=== PATIENT | male | born 1955 | race Caucasian/White ===

== ENCOUNTER 2020-04-19 14:17 | Emergency (ER) | payer MEDICARE, OTHER, SELFPAY ==
[2020-04-19 14:28] VITALS: BP 155/75; PULSE 62; RESP 20; TEMP 35.9; O2SAT 100
--- NOTE | 2020-04-19 14:42 | ED.URI ---
HPI - URI/Sore Throat General Chief Complaint: Upper Respiratory Infection Stated Complaint: EARACHE/SORE THROAT Time Seen by Provider: 04/19/20 14:43 Source: patient and RN notes reviewed Mode of arrival: ambulatory Limitations: no limitations History of Present Illness HPI Narrative: 64-year-old male who presents ambulatory to [facility] with complaints of 2 day history of left sided throat pain when he swallows, sinus drainage, and left ear pain. Patient states that he has not taken any OTC medications for his symptoms, denies any known fevers, chills, or sweats, denies any headache or any sinus pressure. Patient denies any shortness of breath, no wheezing or tachypnea noted with SAO2 100% on room air. MD elicited complaint: sore throat, rhinorrhea and other (Ear pain) Onset (ago): day(s) (2) Consistency: constant Severity: mild Pain scale (0-10): 3 Description of mucous: clear Able to tolerate fluids by mouth: Yes Exacerbating factors: swallowing Relieving factors: nothing Associated symptoms: rhinorrhea, sore throat and ear pain (left) Treatments prior to arrival: none Related Data Home Medications Medication Instructions Recorded Confirmed amlodipine 10 mg tablet 10 mg PO DAILY 02/11/19 Allergies Allergy/AdvReac Type Severity Reaction Status Date / Time No Known Allergies Allergy Unverified 08/09/18 13:52 Review of Systems Review of Systems: Narrative: CONSTITUTIONAL: Denies fever, chills, or sweats. EYES: Denies visual changes, redness, or discharge. ENT: Positive rhinorrhea, congestion, sore throat,left otalgia. CARDIOVASCULAR: Denies chest pain, palpitations, or edema. RESPIRATORY: Denies cough or dyspnea. GASTROINTESTINAL: Denies abdominal pain, nausea, vomiting, or diarrhea. GENITOURINARY: Denies dysuria or hematuria. SKIN: Denies rash or itching. MUSCULOSKELETAL: Denies back pain, joint pain, or myalgia. NEUROLOGIC: Denies headache, numbness, or weakness. PSYCHIATRIC: positive history of anxiety or depression. All systems reviewed & are unremarkable except as noted in HPI and below PMFSH Past Medical History Medical History (Updated 04/21/20 @ 08:13 by Oliva Hutton NP) Angina pectoris, unspecified Anxiety Hypertension Surgical History Surgical History (Updated 04/21/20 @ 08:12 by Oliva Hutton NP) Hx of cholecystectomy Hx of tonsillectomy Family History Family History (Updated 04/21/20 @ 08:14 by Oliva Hutton NP) Father Patient's father is , Onset Age: 72 Abdominal aneurysm Grandparent Family history of malignant neoplasm Mother Family history of renal failure, Onset Age: 82 Family history of kidney disease Sibling Diabetes mellitus Social History Social History (Updated 04/19/20 @ 15:02 by Oliva Hutton NP) Smoking status: Never smoker Alcohol intake: current Substance use: never Living arrangements: with family Gender identity (if verbalized by the patient): Male Comments At time of signature, agree with nursing past medical, surgical, social and family history. There is no relevant family history pertinent to the presenting complaint Exam Narrative: Exam Narrative: GENERAL: Well-appearing, well-nourished, and in no acute distress. HEAD: Normocephalic, atraumatic. EYES: PERRLA and EOMI. ENT: Nares red with clear rhinorrhea no epistaxis. Mucous membranes moist.TM's normal with good light reflex, throat red with no exudates no tonsil enlargement post nasal drainage noted NECK: Supple.lymphadenopathy CHEST: Clear to auscultation. No respiratory distress.SAO2 100% on room air HEART: Regular rate and rhythm. No murmur heard. Normal peripheral pulses. ABDOMEN: Soft, nontender, nondistended, normal active bowel sounds. EXTREMITIES: Normal range of motion. No edema. SKIN: Warm, dry, no rash. NEURO: No focal deficits. Alert and oriented x3. Course Vital Signs Vital signs: Vital Signs Temperature 35.9 C L 04/19/20
== END 2020-04-19 15:16 | disposition home or self-care (01) ==
PROVIDERS: Emergency Provider Registered Nurse; PCP Family Medicine
DX: J06.9 Acute upper respiratory infection, unspecified (principal); J02.9 Acute pharyngitis, unspecified; I10 Essential (primary) hypertension; I20.9 Angina pectoris, unspecified
CPT/HCPCS: 87081; 87880; 99213; G0463

== ENCOUNTER → 2020-07-28 16:33 | Outpatient (CLI) | payer MEDICARE, OTHER, SELFPAY ==
--- NOTE | ~2020-07-28 | XR_ITS ---
EXAMINATION: XR foot RT min 3V DATE: 07/28/2020 16:45 INDICATION: Bunion of the right foot TECHNIQUE: Dorsoplantar, lateral, and 2 oblique views of the right foot were obtained. COMPARISON: None. FINDINGS: There is moderate osteoarthritis at the first metatarsophalangeal joint. Mild osteoarthriti s is seen in multiple interphalangeal joints. No fracture is identified. A plantar calcaneal enthesop hyte is noted. There is a triangular heterotopic ossification at the lateral base of the second proxi mal phalanx which may reflect prior injury. IMPRESSION: 1. Polyarticular osteoarthritis. Reviewed, dictated and finalized at location A.
== END ==
PROVIDERS: PCP Physician Assistant Medical; Visit Provider Physician Assistant Medical
DX: M21.611 Bunion of right foot (principal); M19.071 Primary osteoarthritis, right ankle and foot
CPT/HCPCS: 73630

== ENCOUNTER 2021-01-25 00:15 | Day surgery (SDC) | payer MEDICARE, OTHER, SELFPAY ==
[2021-01-10 13:10] VITALS: BMI 27.0
[2021-01-25 06:32] VITALS: BP 124/83; PULSE 64; RESP 16; TEMP 36.1; O2SAT 98
[2021-01-25] MEDS: LACTATED RINGERS 1,000 ML 150 ML IV CONT (06:43)
--- NOTE | 2021-01-25 07:14 | P.PNAN_ITS ---
Anes - Initial Pre Proc Eval Procedure: Operation Date: 01/25/21 07:30 Proposed Procedures p Screening Colonoscopy - Kenny Smith MD Date/Time: 01/25/21 07:14 Surgeon: Kenny Smith MD Pre Op Diagnosis: neoplasm screening Patient Data Age: 65 Gender: M Height: 1.78 m Weight: 84.2 kg Last Vital Signs Temp 36.1 C L 01/25/21 06:32 Pulse 64 01/25/21 06:32 Resp 16 01/25/21 06:32 BP 124/83 01/25/21 06:32 Pulse Ox 98 01/25/21 06:32 Allergies Allergy/AdvReac Type Severity Reaction Status Date / Time No Known Allergies Allergy Verified 01/25/21 06:31 Home Medications Medication Instructions Recorded Confirmed Type amlodipine 10 mg tablet 10 mg PO DAILY 02/11/19 01/25/21 History sod picosulf 10 mg-magnes 3.5 160 ml PO DAILY #320 ml 12/14/20 Rx gram-citric 12 gram/160 mL oral solution Patient hx anesthesia problems: none Family hx anesthesia problems: none Results Review: All pre-operative results and documents have been reviewed as part of the pre-operative evaluation. [facility] Past Medical History Medical History Angina pectoris, unspecified Anxiety Hypertension Surgical History Surgical History Hx of cholecystectomy Hx of tonsillectomy Family History Family History Father Patient's father is , Onset Age: 72 Abdominal aneurysm Grandparent Family history of malignant neoplasm Mother Family history of renal failure, Onset Age: 82 Family history of kidney disease Sibling Diabetes mellitus Social History Social History Smoking status: Never smoker Alcohol intake: current Drinks per week: 2 Substance use: never Living arrangements: with family Gender identity (if verbalized by the patient): Male Spiritual care concerns: No Anes - Eval Final PreProcedure Day of Procedure 01/25/21 07:14 Patient weight: overweight Heart: regular rate and rhythm Lungs: clear to auscultation and normal air movement Airway: Mallampati scale class II Neurological: alert and oriented Last oral intake: >/= 8 hours ASA classification: II Emergent: no Anesthetic plan: proceed Anesthesia type and monitoring: general GIVS Results Review: All pre-operative results and documents have been reviewed as part of the pre-operative evaluation. Informed Consent: The patient's anesthetic plan and its attendant risks and be nefits were discussed with the patient/family/POA. Questions were solicited and answers provided to the satisfaction of the patient/family/POA.
--- NOTE | 2021-01-25 07:22 | WPDGICN ---
Assessment and Plan Assessment and plan (1) Encounter for screening colonoscopy: Code(s): Z12.11 - Encounter for screening for malignant neoplasm of colon Status: Acute Assessment and Plan: Patient presents for screening colonoscopy. He appears to be at average risk for colon polyps. Further recommendations will be given after endoscopy. GI Consult Note Consult date/time: 01/25/21 07:22 HPI: Tonny Roca is a 65 year old male Presents for screening colonoscopy. Patient reports that his current weight appetite and bowel movements are normal. He denies abdominal pain. He has had no bleeding. Family history is noncontributory. Patient's last colonoscopy in 2008 was unremarkable. Review of Systems Review of Systems: All systems reviewed & are unremarkable except as noted in HPI and below PMFSH Past Medical History Medical History Angina pectoris, unspecified Anxiety Hypertension Surgical History Surgical History Hx of cholecystectomy Hx of tonsillectomy Family History Family History Father Patient's father is , Onset Age: 72 Abdominal aneurysm Grandparent Family history of malignant neoplasm Mother Family history of renal failure, Onset Age: 82 Family history of kidney disease Sibling Diabetes mellitus Social History Social History Smoking status: Never smoker Alcohol intake: current Drinks per week: 2 Substance use: never Living arrangements: with family Gender identity (if verbalized by the patient): Male Spiritual care concerns: No Meds Home Medications and Allergies Home Medications Medication Instructions Recorded Confirmed Type amlodipine 10 mg tablet 10 mg PO DAILY 02/11/19 01/25/21 History sod picosulf 10 mg-magnes 3.5 160 ml PO DAILY #320 ml 12/14/20 Rx gram-citric 12 gram/160 mL oral solution Allergies Allergy/AdvReac Type Severity Reaction Status Date / Time No Known Allergies Allergy Verified 01/25/21 06:31 Vital Signs Vital Signs - 24 hr 01/25/21 06:32 Temperature 96.9 F L Pulse Rate 64 Respiratory Rate 16 Blood Pressure 124/83 Pulse Oximetry 98 Exam Narrative: Physical exam reveals patient to be alert. Vital signs stable. HEENT exam is unremarkable. Patient is anicteric. Lungs are clear to auscultation and percussion. Heart is without murmur or extra sounds. Abdominal exam bowel sounds present soft nontender with no organomegaly. Digital external rectal exam is normal.
[2021-01-25] MEDS: SIMETHICONE ORAL SUSPENSION 20 MG/0.3 ML 30 ML BOTTLE 0.6 ML IRRIGATION (07:36)
[2021-01-25 07:49] VITALS: BP 88/56; PULSE 80; RESP 16; O2SAT 96
[2021-01-25 07:59] VITALS: BP 102/66; PULSE 49; RESP 16; O2SAT 94
[2021-01-25 08:09] VITALS: BP 113/60; PULSE 49; RESP 16; O2SAT 97
== END 2021-01-25 08:20 | disposition home or self-care (01) ==
PROVIDERS: PCP Family Medicine; Visit Provider Internal Medicine Gastroenterology
PROC: 0DJD8ZZ Inspection of Lower Intestinal Tract, Via Natural or Artificial Opening Endoscopic (ICD-10-PCS; CPT 45378; principal; 2021-01-25 07:30)
DX: Z12.11 Encounter for screening for malignant neoplasm of colon (principal); K63.5 Polyp of colon; K64.8 Other hemorrhoids; K57.30 Diverticulosis of large intestine without perforation or abscess without bleeding; F41.9 Anxiety disorder, unspecified; I10 Essential (primary) hypertension; I20.9 Angina pectoris, unspecified; Z90.49 Acquired absence of other specified parts of digestive tract
CPT/HCPCS: 45385; 88305; J2704; J7120

== ENCOUNTER 2022-03-12 15:23 | Emergency (ER) | payer MEDICARE, SELFPAY ==
[2022-03-12 15:48] VITALS: BP 119/71; PULSE 79; RESP 16; TEMP 36.7; O2SAT 99
--- NOTE | 2022-03-12 16:01 | ED.URI ---
HPI - URI/Sore Throat General Chief Complaint: Upper Respiratory Infection Stated Complaint: sorethroat Time Seen by Provider: 03/12/22 16:01 Source: patient Mode of arrival: ambulatory Limitations: no limitations History of Present Illness HPI Narrative: 66-year-old male presents with complaint of sore throat, body aches, fatigue, headache starting yesterday. Patient reports that his son was staying with him last week and was positive for strep. Patient reports that his has a heart condition and he wants to treat his strep early before spreading it to her. Denies nausea vomiting diarrhea. All systems reviewed and negative except as noted above. Related Data Home Medications Medication Instructions Recorded Confirmed amlodipine 10 mg tablet 10 mg PO DAILY 02/11/19 03/12/22 melatonin 10 mg capsule 10 mg PO QHS 07/24/21 03/12/22 Allergies Allergy/AdvReac Type Severity Reaction Status Date / Time No Known Allergies Allergy Verified 03/12/22 15:32 Review of Systems Review of Systems: CONSTITUTIONAL: Denies fever, chills, or sweats. reports fatigue. EYES: Denies visual changes, redness, or discharge. ENT: Denies rhinorrhea, congestion . Reports sore throat. Denies otalgia. CARDIOVASCULAR: Denies chest pain, palpitations, or edema. RESPIRATORY: Denies cough or dyspnea. GASTROINTESTINAL: Denies abdominal pain, nausea, vomiting, or diarrhea. GENITOURINARY: Denies dysuria or hematuria. SKIN: Denies rash or itching. MUSCULOSKELETAL: Denies back pain, joint pain, or myalgia. NEUROLOGIC: Reports headache. Denies numbness, or weakness. PSYCHIATRIC: Denies anxiety or depression. All other systems reviewed are negative, except as documented in HPI. [facility] Past Medical History Medical History Angina pectoris, unspecified Anxiety Hypertension Surgical History Surgical History Hx of cholecystectomy Hx of tonsillectomy Family History Family History Father Patient's father is , Onset Age: 72 Abdominal aneurysm Grandparent Family history of malignant neoplasm Mother Family history of renal failure, Onset Age: 82 Family history of kidney disease Sibling Diabetes mellitus Social History Social History Alcohol intake: current Drinks per week: 2 Substance use: never Gender identity (if verbalized by the patient): Male Spiritual care concerns: No Comments At time of signature, agree with nursing past medical, surgical, social and family history. There is no relevant family history pertinent to the presenting complaint. Exam Narrative: GENERAL: This is a well-nourished, well-developed patient, in no apparent distress. HEAD: normocephalic, atraumatic. EYES: PERRL. Sclera clear/white. Vision is grossly intact. EARS: External ears normal, auditory canals clear and without drainage, TMs normal without perforation. Hearing grossly intact. NOSE: External nose normal with no obvious nasal discharge, nares without redness, no rhinorrhea. THROAT: Mucous membranes moist, erythema to posterior pharynx with slight swelling. NECK: Neck supple, non-tender without lymphadenopathy, masses or thyromegaly. CARDIOVASCULAR: Regular rate and rhythm without murmurs, gallops, or rubs. RESPIRATORY: Clear to auscultation. Breath sounds equal bilaterally. No wheezes, rales, or rhonchi. SKIN: warm, Dry, intact with no suspicious lesions or rash, good texture and turgor. NEURO: awake, alert, and oriented to person, place and time. There were no obvious focal neurologic abnormalities. EXTREMITIES: No joint tenderness, effusion, or edema noted. Course Course Level of Care: Express Care Visit Vital Signs Vital signs: Vital Signs Temperature 36.7 C 03/12/22
== END 2022-03-12 16:24 | disposition home or self-care (01) ==
PROVIDERS: Emergency Provider Nurse Practitioner Family; PCP Family Medicine
DX: J02.0 Streptococcal pharyngitis (principal); I10 Essential (primary) hypertension
CPT/HCPCS: 87880; 99213; G0463

== ENCOUNTER 2022-06-17 05:30 | Observation (INO) | payer MEDICARE, SELFPAY ==
[2022-06-17] VITALS (20 sets, daily range): BP systolic 118–164; BP diastolic 67–89; PULSE 52–78; RESP 11–16; TEMP 36.3–36.6; O2SAT 94–100; BMI 27.0; BMI 26.9
--- NOTE | ~2022-06-17 | CT_ITS ---
Non-contrast Head CT History: Dizziness Technique: Axial non-contrast imaging of the brain was performed. Dose reduction technique was used on this scan by utilizing automated exposure control and iterative reconstruction technique. The dose -length product (DLP) was 681.00 mGy-cm. Findings: There is no evidence of intracranial hemorrhage, mass lesion, or acute infarct. Brain par enchyma appears normal. The ventricles and subarachnoid spaces are normal in size. The calvarium ap pears normal. The visualized paranasal sinuses and mastoid air cells are clear. Impression: No significant abnormality seen. Reviewed, dictated and finalized at location . Impression: No significant abnormality seen.
--- NOTE | ~2022-06-17 | XR_ITS ---
Clinical Indication: Chest pain PA and lateral views of the chest: Comparison: 11/28/2016 Findings: The lungs are clear, without evidence of focal consolidation or pleural effusion. Cardiome diastinal silhouette is within normal limits. Bones and soft tissues are unremarkable. Impression: Normal chest. Reviewed, dictated and finalized at location . Impression: Normal chest.
--- NOTE | 2022-06-17 05:41 | ECG_ITS ---
Measurements Intervals [place] Rate: 61 P: -10 [place]: 280 QRS: -27 QRSD: 103 T: 126 QT: 403 QTc: 406 Interpretive Statements SINUS RHYTHM WITH FIRST DEGREE AV BLOCK VOLTAGE CRITERIA FOR LVH NONSPECIFIC T-WAVE ABNORMALITY BORDERLINE ECG NO PREVIOUS ECG AVAILABLE FOR COMPARISON Electronically Signed On 06-17-2022 16:56:35 CDT by Qamar Lino M.D.
[2022-06-17 06:52] LABS: Basophils Absolute Auto 0.1 K/mm3 (0.0-0.1); Basophils Percent Auto 1.4 % (0.2-1.2); Eosinophils Absolute Auto 0.4 K/mm3 (0-0.3); Eosinophils Percent Auto 6.3 % (0-4.4); Hematocrit 43.1 % (42.0-52.0); Hemoglobin 14.8 g/dL (14.0-18.0); Immature Granulocyte Absolute 0.01 K/mm3 (0.00-0.031); Immature Granulocyte Percent A 0.2 % (0-0.5); Lymphocytes Absolute Auto 2.03 K/mm3 (0.9-3.2); Lymphocytes Percent Auto 31.2 % (18.3-44.2); Mean Corpuscular HGB Conc 34.3 g/dl (32-36); Mean Corpuscular Hemoglobin 32.4 pg (26-34); Mean Corpuscular Volume 94.3 fl (80-100); Mean Platelet Volume 11.1 fl (7.4-10.4); Monocytes Absolute Auto 0.4 K/mm3 (0.1-0.6); Monocytes Percent Auto 6.3 % (2.6-8.5); Neutrophils Absolute Auto 3.6 K/mm3 (1.3-6.7); Neutrophils Percent Auto 54.6 % (45.5-73.1); Platelet Count Result 270 k/mm3 (150-375); Red Blood Count 4.57 M/mm3 (4.6-6.20); Red Cell Distribution Width 13.2 % (11.5-14.5); White Blood Count 6.5 K/mm3 (4.5-10.0)
[2022-06-17 07:03] LABS: Alanine Aminotransferase 23 U/L (6-50); Albumin Level 4.1 g/dL (3.5-5.1); Alkaline Phosphatase 102 U/L (38-126); Anion Gap 7 mmol/L (8-16); Aspartate Amino Transferase 25 U/L (17-59); Bilirubin,Total 0.8 mg/dL (0.2-1.3); Blood Urea Nitrogen 17 mg/dL (9-20); Calcium 8.9 mg/dL (8.4-10.2); Carbon Dioxide 26 mmol/L (22-30); Chloride 106 mmol/L (98-107); Estimated CRCL calculation 56 ml/min; Estimated Glomerular Filt Rate 60; Glucose 114 mg/dL (65-110); Lipase 212 U/L (23-300); Sodium 139 mmol/L (137-145)
[2022-06-17 07:05] LABS: INR 1.1; Partial Thromboplastin Time 29.1 SECONDS (22.3-36.8); Prothrombin Time 13.3 Seconds (11.1-14.7)
[2022-06-17 07:16] LABS: Troponin I 0.307 ng/mL (0.000-0.034)
--- NOTE | 2022-06-17 07:18 | ECG_ITS ---
Measurements Intervals [place] Rate: 56 P: -29 IN: 263 QRS: -12 QRSD: 103 T: 32 QT: 407 QTc: 394 Interpretive Statements SINUS BRADYCARDIA WITH FIRST DEGREE AV BLOCK VOLTAGE CRITERIA FOR LVH BORDERLINE ECG COMPARED TO ECG 06/17/2022 05:47:06 SINUS BRADYCARDIA NOW PRESENT Electronically Signed On 06-17-2022 16:57:49 CDT by Qamar Lino M.D.
--- NOTE | 2022-06-17 07:28 | ED.GENADULT ---
HPI - General Adult General Chief complaint: Unspecified Stated complaint: left arm pain, jaw pain with activity Time Seen by Provider: 06/17/22 07:01 Source: family and RN notes reviewed History of Present Illness HPI narrative: Patient presents emergency department from home for left arm pain. Patient states that this morning he awoke and had some pain in his left arm at approximately 5 AM. He states that pain was described as aching in nature and states he did have some mild dizziness with that when he stood up. He states that the symptoms are now resolved states over the past 2 weeks he has been having aching in his jaw whenever he is doing any strenuous activity states will occur when he is playing with his grandchildren or at the end of playing golf and states that it will resolve with rest he denies having any chest pain or shortness of breath he denies having any fevers or chills abdominal pain nausea or vomiting. He states that at this current time he has no pain he states he has been having nasal congestion for the past week with pressure in his sinuses as well but denies any sore throat Related Data Home Medications Medication Instructions Recorded Confirmed amlodipine 10 mg tablet 10 mg PO DAILY 02/11/19 03/26/22 melatonin 10 mg capsule 10 mg PO QHS 07/24/21 03/26/22 Allergies Allergy/AdvReac Type Severity Reaction Status Date / Time No Known Allergies Allergy Verified 06/17/22 05:52 Review of Systems Review of Systems: Gen.: Denies fevers or chills Eyes: Denies eye pain or visual change ENT reports nasal congestion and jaw Respiratory: Denies shortness of breath or cough CV: Denies chest pain or palpitations GI: Denies abdominal pain nausea, emesis or diarrhea Musculoskeletal: Denies back pain or muscle pain reports left arm pain Neuro: Denies numbness, tingling, weakness or focal weakness Skin: Denies rash Except as documented, all other systems reviewed and negative [facility] Past Medical History Medical History Angina pectoris, unspecified Anxiety Hypertension Surgical History Surgical History Hx of cholecystectomy Hx of tonsillectomy Family History Family History Father Patient's father is , Onset Age: 72 Abdominal aneurysm Grandparent Family history of malignant neoplasm Mother Family history of renal failure, Onset Age: 82 Family history of kidney disease Sibling Diabetes mellitus Social History Social History Smoking status: Never smoker Alcohol intake: current Drinks per week: 3 Substance use: never Lack of Transportation: No Lack of Food: Never True Current Housing: I Have Housing Concerned About Future Housing: No Difficulty Paying Gas/Electric Bills: No Difficulty Paying for Meds: No Currently Unemployed: No Education: Bachelor's Degree Difficulty w/ Childcare or Family Care: No Living arrangements: with family Gender identity (if verbalized by the patient): Male Spiritual care concerns: No Exam Narrative: APPEARANCE: No acute distress, nontoxic, resting in bed EYES: EOMI HEENT: Normocephalic, atraumatic, TMs clear bilaterally bilateral turbinates boggy erythema or exudate posterior pharynx RESPIRATORY: No respiratory distress Clear to auscultation bilaterally with no rhonchi wheezing or rales. CARDIOVASCULAR: Regular rate and rhythm without murmurs rubs or gallops. Bilateral radial pulse 2+ ABDOMINAL: Soft, nontender, nondistended, no rebound or guarding MUSCULOSKELETAl: Moves all extremities. No clubbing, cyanosis or edema. NEURO: Awake and alert x 4 Following commands, speech normal, no focal deficits, muscle strength 5 out of 5 bilateral upper and lower extremities SKIN:: Warm, dry. No rashes leswarren
[2022-06-17] MEDS: ASPIRIN 81 MG CHEWABLE TABLET 324 MG PO (08:06)
[2022-06-17 09:24] LABS: Influenza A QL RT-PCR Negative (Negative); Influenza B QL RT-PCR Negative (Negative); RSV RNA, RT-PCR Negative (Negative); SARS-CoV-2 RNA PCR Negative
--- NOTE | 2022-06-17 11:00 | ADMGEN ---
This patient, Tonny Roca, was admitted to IMU Room 204-01. Patient/family oriented to hospital policies and general routines including ID bracelet, bed and alarms, visiting hours, pain management, procedures, bathroom and other care routines, personal items, smoking policy, room service/diet, and visiting hours. Information on how to activate the Rapid Response Team has been discussed. Patient/Family are encouraged to report perceived risks to care and to ask questions if they do not understand what they are told or what they should do.
[2022-06-17 11:08] LABS: Troponin I 0.262 ng/mL (0.000-0.034)
--- NOTE | 2022-06-17 13:40 | PM.IMHP ---
H&P: HPI History of Present Illness Date/Time: 06/17/22 13:40 Chief Complaint: Left jaw pain and left arm pain Narrative: This is a 66-year-old male patient who has a history of hypertension. The patient has no previous history of coronary artery disease. The patient stated that on and off for the last 2 weeks he has been having some left jaw pain and left arm pain with activity. The patient stated when he was coughing in when he was playing with her grand children he developed the left arm and left jaw pain. The patient stated is aching any also had some mild dizziness when he stood up. The patient stated that this morning he woke up at 5:00 a.m. and had left arm pain. The patient denies any fever chills. The patient has been complaining of having some nasal congestion and thought that maybe he was just having sinus problems and that was why his jaw was aching. Troponins 0 point very 0 7, 0.262 and 0.237. The patient is currently pain-free. He is negative for influenza A/B and COVID. Head CT was read as no significant abnormality. Chest x-ray was read as normal chest. The patient was given an aspirin. Cardiology has been consulted and started the patient on subcu Lovenox and Lipitor. The patient is being admitted to observation status on the date of service of 06/17/2022. Review of Systems Review of Systems: All systems reviewed & are unremarkable except as noted in HPI and below Constitutional: Constitutional: Reports as per HPI and Reports no additional constitutional complaints Eyes: Eyes: Reports as per HPI and Reports no additional eye complaints ENT: Reports system reviewed and no additional complaints, except as documented and Reports Normal hearing present Cardiovascular: Cardiovascular: Reports no additional cardiovascular complaints Respiratory: Respiratory: Reports no additional respiratory complaints and Reports no additional respiratory complaints Gastrointestinal: Gastrointestinal: Reports as per HPI and Reports no additional gastrointestinal complaints Musculoskeletal: Musculoskeletal: Reports no additional musculoskeletal complaints Integumentary/Breasts: Skin/Breast: Reports system reviewed and no additional complaints, except as docu and Reports as per HPI Neurologic: Reports system reviewed and no additional complaints, except as documented, Reports as per HPI and Reports Normal hearing present Psychiatric: Psychiatric: Reports no additional psychiatric complaints and Reports as per HPI Endocrine: Endocrine: Reports no additional endocrine complaints Hematologic/Lymphatic: Hematologic/Lymphatic: Reports no additional hematologic/lymphatic complaints Allergic/Immunologic: Allergic/Immunologic: Reports no additional allergic/immunologic complaints [facility] Past Medical History Medical History Angina pectoris, unspecified Anxiety Hypertension Surgical History Surgical History (Updated 06/17/22 @ 16:32 by Estefanía Galvan NP) History of cataract extraction Hx of cholecystectomy Hx of tonsillectomy Family History Family History Father Patient's father is , Onset Age: 72 Abdominal aneurysm Grandparent Family history of malignant neoplasm Mother Family history of renal failure, Onset Age: 82 Family history of kidney disease Sibling Diabetes mellitus Social History Social History (Updated 06/17/22 @ 16:24 by Estefanía Galvan NP) Social History: The patient is and lives with his . He has 2 children. He is retired from selling insurance Smoking status: Never smoker Second hand tobacco smoke exposure: Yes Alcohol intake: current Drinks per week: 4 Substance use: never Lack of Transportation: No Lack of Food: Never True Current Housing: I Have Housing Concerned About Future Housing: No Difficulty Paying Gas/Electric Bills:
[2022-06-17 13:55] LABS: Troponin I 0.237 ng/mL (0.000-0.034)
[2022-06-17 14:34] LABS: Cholesterol 174 mg/dL (0-200); HDL Direct 34 mg/dL; Triglycerides 107 mg/dL (<150)
[2022-06-17 14:45] LABS: LDL Cholesterol Direct 111 mg/dL
--- NOTE | 2022-06-17 14:50 | PM.CNCAR ---
Assessment and Plan Assessment and plan (1) Unstable angina: Code(s): I20.0 - Unstable angina Status: Acute Assessment and Plan: Patient presents with exertional jaw and arm pain as well as progressive fatigue awaking from sleep with left arm pain prompting presentation found to have elevated troponins consistent with NSTEMI. symptoms currently resolved and is hemodynamically stable. Troponin slightly down trending clinical picture highly concerning for severe obstructive CAD. Will give Lovenox 1 milligram/kilogram subcutaneous x1 now. Aspirin 81 mg daily, initiate statin therapy. Goal LDL less than 70. Continue telemetry. NPO after midnight for coronary angiography for definitive evaluation was coronary anatomy. We discussed the basic versus noninvasive evaluation. Given elevated troponin, high pre clinical likelihood of obstructive CAD presenting with unstable symptoms occurring at rest with elevated troponin stress test would not be appropriate at this time. Discussed the risks, benefits, and alternatives to coronary angiography including but not limited to bleeding, stroke, infection, myocardial infarction. Patient verbalized understanding and agreed with plan of care. All questions answered to his satisfaction and to the satisfaction of his and daughter who were at bedside. we discussed the likelihood of percutaneous intervention and or stent implantation, medical management of CAD particularly if coronary intervention is warranted. 2D echocardiogram to assess LV size /function, wall motion abnormalities, without pathology and pulmonary pressures. Discussed possibilities including single-vessel severe obstructive disease appropriate for intervention and or the prospect of severe multivessel coronary disease in which intervention at this institution would not be appropriate with recommendation for coronary artery bypass grafting surgery may be indicated. Recommendations to follow. Patient verbalized understanding and agreed with plan of care. I spent 67 minutes in the care of this patient including discussions at bedside with patient and his family, chart review, medical decision-making, and documentation. (2) Hypertension: Code(s): I10 - Essential (primary) hypertension Status: Acute Assessment and Plan: BP elevated but reasonably controlled at this time. May resume amlodipine 10 mg daily as tolerated. (3) Hyperlipemia: Code(s): E78.5 - Hyperlipidemia, unspecified Status: Acute Assessment and Plan: Atorvastatin 80 mg bedtime ordered. It check lipid panel. Goal LDL less than 70. History of Present Illness History of Present Illness Consult date/time: Date of service:06/17/22 14:50 Requesting physician: Estefanía Galvan NP Consult reason: Other (NSTEMI unstable angina) Reason For Visit: Elevted Troponin/Atypical Chest Pain Narrative: patient is a pleasant 66-year-old male with a past medical history significant for hypertension and mild hyperlipidemia who had been in his usual state of health when he presented with progressive complaints of exertional right neck and jaw pain, occasional left arm pain with more strenuous activity such as playing with his grandchildren in the pool or after playing golf. Patient admits he has been feeling more fatigued for the past several weeks as well. He denies pa chest discomfort although he presented to the ER when he woke with left arm aching pain that would not resolve. he is currently pain-free and at his baseline. He did not feel exertional dyspnea was a prominent component of his symptoms although maybe at times was apparent. He denies recent illnesses, fevers or chills. No near-syncope or syncope, palpitations, falls. He has no prior known history of CAD/myocardial infarction, CHF, stroke, DVT / PE. He states he would note toward the end of his run golf he would get jaw pain which would then resolve wi
[2022-06-17] MEDS: ATORVASTATIN 40 MG TABLET 80 MG PO (17:33)
[2022-06-17] MEDS: ENOXAPARIN 100 MG/ML SYRINGE 85 MG SUB-Q (17:33)
[2022-06-17] MEDS: MELATONIN 5 MG TABLET PO (21:42)
[2022-06-18] VITALS (14 sets, daily range): BP systolic 95–137; BP diastolic 63–89; PULSE 48–61; RESP 8–18; TEMP 35.8–36.6; O2SAT 94–98
--- NOTE | 2022-06-18 | ECHO_ITS ---
Patient Info Name: Tonny Roca Age: 66 years : 1955 Gender: Male Ht: 70 in Wt: 192 lbs BSA: 2.09 m2 HR: 53 bpm BP: 120 / 71 mmHg Heart Rhythm: Sinus Rhythm Technical Quality: Fair Exam Date: 06/18/2022 2:38 PM Exam Location: [facility] Card Pulmonary Patient Status: Outpatient Admit Date: 06/17/2022 Staff Ordering Physician: Qamar Lino MD Cyber Security Consultant: Ann-Marie Alcala RDCS Attending Provider: Fred Quinteros MD Referring Physician: Zoie STOREY; Exam Type: CA echo dop color flow w con Study Info Indications - elevated tropnin, jaw pain Complete two-dimensional, color flow and Doppler transthoracic echocardiogram is performed with contrast to opacify the left ventricle and to improve the deliniation of the left ventricle endocardial borders. Contrast/Agitated Saline Contrast/Ag. Saline: Definity Amount: 3.00 ml Administered By: Ann-Marie Alcala RDCS Existing IV Access: Yes IV Access Condition: patent with no signs of infiltration Summary 1. Left ventricular chamber dimension is normal. 2. Left ventricular systolic function is normal, estimated at 60-65%. 3. There is no increased left ventricular wall thickness. 4. The left ventricular diastolic function is grade I diastolic dysfunction. 5. Left atrial chamber dimension is mildly enlarged. 6. There is no aortic valve stenosis. 7. There is no mitral valve regurgitation. 8. There is trace tricuspid valve regurgitation. 9. No pulmonary hypertension, estimated pulmonary arterial systolic pressure is 23 mmHg. Left Ventricle Left ventricular chamber dimension is normal. Left ventricular systolic function is normal, estimated at 60-65%. There is no increased left ventricular wall thickness. The left ventricular diastolic function is grade I diastolic dysfunction. Right Ventricle Right ventricular chamber dimension is normal. Right ventricular systolic function is normal. Left Atria Left atrial chamber dimension is mildly enlarged. Right Atria Right atrial chamber dimension is normal. Aortic Valve The aortic valve is trileaflet. There is no aortic valve stenosis. There is trace aortic valve regurgitation. Pulmonic Valve The pulmonic valve is not well visualized. Mitral Valve The mitral valve has normal leaflets. There is no mitral valve regurgitation. The mitral valve annulus is mildly calcified. Tricuspid Valve The tricuspid valve leaflets are normal. There is trace tricuspid valve regurgitation. No pulmonary hypertension, estimated pulmonary arterial systolic pressure is 23 mmHg. Pericardium/Pleural The pericardium appears normal. There is trivial pericardial effusion. Aorta The aortic root size at the sinus of Valsalva is normal. There is mild aortic atherosclerosis. Left Ventricular Outflow Tract Name Value Normal LVOT 2D LVOT Diameter 2.03 cm LVOT Doppler LVOT Peak Gradient 5 mmHg LVOT Mean Gradient 3 mmHg LVOT VTI 20.79 cm LVOT VTI/AV VTI Ra
[2022-06-18 05:50] LABS: Basophils Absolute Auto 0.1 K/mm3 (0.0-0.1); Eosinophils Absolute Auto 0.3 K/mm3 (0-0.3); Eosinophils Percent Auto 4.4 % (0-4.4); Hematocrit 43.3 % (42.0-52.0); Hemoglobin 14.4 g/dL (14.0-18.0); Immature Granulocyte Absolute 0.01 K/mm3 (0.00-0.031); Immature Granulocyte Percent A 0.1 % (0-0.5); Lymphocytes Absolute Auto 2.43 K/mm3 (0.9-3.2); Lymphocytes Percent Auto 33.5 % (18.3-44.2); Mean Corpuscular HGB Conc 33.3 g/dl (32-36); Mean Corpuscular Hemoglobin 31.8 pg (26-34); Mean Corpuscular Volume 95.6 fl (80-100); Mean Platelet Volume 11.2 fl (7.4-10.4); Monocytes Absolute Auto 0.4 K/mm3 (0.1-0.6); Monocytes Percent Auto 5.1 % (2.6-8.5); Neutrophils Absolute Auto 4.1 K/mm3 (1.3-6.7); Neutrophils Percent Auto 55.9 % (45.5-73.1); Platelet Count Result 270 k/mm3 (150-375); Red Blood Count 4.53 M/mm3 (4.6-6.20); Red Cell Distribution Width 13.2 % (11.5-14.5); White Blood Count 7.3 K/mm3 (4.5-10.0)
[2022-06-18 05:59] LABS: Carbon Dioxide 32 mmol/L (22-30); Chloride 104 mmol/L (98-107); Potassium 4.2 mmol/L (3.4-5.0); Sodium 140 mmol/L (137-145)
[2022-06-18 06:00] LABS: Alanine Aminotransferase 25 U/L (6-50); Albumin Level 4.2 g/dL (3.5-5.1); Alkaline Phosphatase 95 U/L (38-126); Anion Gap 4 mmol/L (8-16); Aspartate Amino Transferase 26 U/L (17-59); Bilirubin,Total 0.7 mg/dL (0.2-1.3); Blood Urea Nitrogen 14 mg/dL (9-20); Cholesterol 174 mg/dL (0-200); Estimated CRCL calculation 55 ml/min; Estimated Glomerular Filt Rate 60; Glucose 113 mg/dL (65-110); HDL Direct 31 mg/dL; Magnesium 2.5 mg/dL (1.6-2.3); Triglycerides 133 mg/dL (<150)
[2022-06-18 06:11] LABS: LDL Cholesterol Direct 108 mg/dL
[2022-06-18] MEDS: amLODIPine BESYLATE 5 MG TABLET 10 MG PO (08:57)
--- NOTE | 2022-06-18 09:15 | SUR.PREOP ---
pt preprocedurally brought over from [facility] room 204 to [facility] room 4. pt and family in room awaiting to speak with dr reyes regarding ordered cath. pt stable vss. will monitor.
[2022-06-18] MEDS: ASPIRIN 325 MG TABLET (11:36)
[2022-06-18] MEDS: CLOPIDOGREL BISULFATE 300 MG TABLET 600 MG (11:36)
--- NOTE | 2022-06-18 11:40 | PM.IMPN ---
Progress Note: A&P Assessment and Plan (1) Unstable angina: Code(s): I20.0 - Unstable angina Status: Acute Assessment and Plan: Troponin slightly elevated but are now decreasing. Patient no longer has any chest discomfort. The patient stated that he was having left-sided jaw pain with exertion over the last 2 weeks. Patient stated that he woke up this morning with left arm pain. Cardiology has been consulted. The patient will be NPO after midnight. The patient was started on aspirin daily and statin therapy. Subcu Lovenox has been initiated. The patient will be sent for a coronary Angiography tomorrow. He received a 2D echo cardiogram. (2) Elevated troponin: Code(s): R77.8 - Other specified abnormalities of plasma proteins Status: Acute Assessment and Plan: Cardiac catheterization plan. (3) Hypertension: Code(s): I10 - Essential (primary) hypertension Status: Acute Assessment and Plan: The patient is currently on amlodipine. Further recommendation per Cardiology. Subjective Date/time seen: 06/18/22 11:40 No new complaints Exam Const: General: cooperative, healthy appearing, comfortable, no acute distress, well developed, awake, Physically active, average body habitus and well nourished Nutritional Appearance: average body habitus and well nourished Orientation/consciousness: oriented to person, oriented to place, oriented to time and patient oriented x3 Limitations: no limitations HENMT: Head: normal to inspection, No palpable skull fracture present, normocephalic and atraumatic Ears: hearing grossly normal bilaterally and external ears normal Face/Nose/Sinus: Normal external nose present and Normal nares present Eyes: General: appearance normal, both eyes and all related structures Alignment and Position: alignment normal Periorbital: periorbital findings normal Eyelids: eyelids normal Sclera: sclerae normal Pupils: Equal, round and reactive pupils present EOM: EOMs intact bilaterally Neck: Neck: normal visual inspection, full ROM, no lymphadenopathy, trachea midline and supple Chest: Chest palpation & inspection: normal inspection of the chest Resp: Effort & Inspection: normal respiratory effort Auscultation: clear to auscultation bilaterally Cardio: Palpation: normal PMI Rate: bradycardic Rhythm: regular rhythm Heart sounds: S1 normal heart sound present and S2 normal heart sound present Peripheral pulses: Peripheral pulses 2+ throughout GI: Inspection: normal to inspection Auscultation: normal bowel sounds Rectal Exam: deferred Back/Spine/Pelvis: Cervical Spine: cervical ROM normal Skin: General skin exam: normal color Lesions: no lesions Rashes: no rashes Trauma: no lacerations or abrasions Wounds: no wounds Hair: normal Nails: normal Neuro: General: oriented to person, oriented to place, oriented to time and patient oriented x3 Cranial nerves: Yes Equal, round and reactive pupils present and Yes Normal hearing present Cognition (Neuro): normal cognition Speech: normal speech Gait exam (Neuro): Normal gait present Motor exam (neuro): 5/5 motor strength present throughout Sensory Exam: normal sensation Other: He has bilateral hearing aids and can not hear well with his hearing aids. Extrem: General: normal to inspection Right upper extremity: normal to inspection and shoulder/upper arm Left upper extremity: normal to inspection and shoulder/upper arm Right lower extremity: normal to inspection Left lower extremity: normal to inspection Psych: Appearance: grossly normal Mental Status: mental status grossly normal Speech and movement: Normal speech and movement present Affect: normal affect Attitude: cooperative Thought process: Normal thought process present Insight: Good insight present (Psych) Judgement: Good judgement present (Psych) Objective Data Vital Signs Vital Signs: Vital Signs - 24 hr 06/17/22 12:00
--- NOTE | 2022-06-18 13:41 | WPDMODSED ---
Moderate Sedation Note-Pt Data Patient Data Diagnosis: Coronary artery disease Present Complaint: Coronary artery disease Procedure to be performed/Plan: Coronary angiography, LHC, +/- PCI Allergies Allergy/AdvReac Type Severity Reaction Status Date / Time No Known Allergies Allergy Verified 06/17/22 05:52 Home Medications Medication Instructions Recorded Confirmed Type amlodipine 10 mg tablet 10 mg PO DAILY 02/11/19 06/17/22 History melatonin 10 mg capsule 5 mg PO QHS 07/24/21 06/17/22 History Current Medications: Active Medications Amlodipine Besylate (Amlodipine Besylate 5 Mg Tablet) 10 mg PO DAILY [facility] Last Admin: 06/18/22 08:57 Dose: 10 mg Aspirin (Aspirin 81 Mg Enteric Tablet) 81 mg PO QAM [facility] Atorvastatin Calcium (Atorvastatin 40 Mg Tablet) 80 mg PO QPM [facility] Last Admin: 06/17/22 17:33 Dose: 80 mg Clopidogrel Bisulfate (Clopidogrel Bisulfate 75 Mg Tablet) 75 mg PO QAM [facility] Sodium Chloride (Normal Saline Iv) 1,000 mls @ 125 mls/hr IV CONT .Q8H ONE Stop: 06/18/22 21:31 Isosorbide Mononitrate (Isosorbide Mononitrate 30 Mg Tab.Er.24h) 30 mg PO QAM [facility] Melatonin (Melatonin 5 Mg Tablet) 5 mg PO QHS [facility] Last Admin: 06/17/22 21:42 Dose: 5 mg Perflutren Lipid Microsphere (Perflutren Lipid Microspheres 1.5 Ml Vial Diluted To 10 Ml Total Volume) 0 ml IV PUSH ONCE PRN; Protocol PRN Reason: adequate visualization Stop: 06/19/22 13:41 Perflutren Lipid Microsphere (Perflutren Lipid Microspheres 1.5 Ml Vial Diluted To 10 Ml Total Volume) 0 ml IV PUSH ONCE PRN; Protocol PRN Reason: adequate visualization Stop: 06/19/22 14:07 Sedation/Anesthesia: No previous sedation/anesthesia problems (including family history). [facility] Past Medical History Medical History Angina pectoris, unspecified Anxiety Hypertension Surgical History Surgical History History of cataract extraction Hx of cholecystectomy Hx of tonsillectomy Family History Family History Father Patient's father is , Onset Age: 72 Abdominal aneurysm Grandparent Family history of malignant neoplasm Mother Family history of renal failure, Onset Age: 82 Family history of kidney disease Sibling Diabetes mellitus Social History Social History Social History: The patient is and lives with his . He has 2 children. He is retired from selling insurance Smoking status: Never smoker Second hand tobacco smoke exposure: Yes Alcohol intake: current Drinks per week: 4 Substance use: never Lack of Transportation: No Lack of Food: Never True Current Housing: I Have Housing Concerned About Future Housing: No Difficulty Paying Gas/Electric Bills: No Difficulty Paying for Meds: No Currently Unemployed: No Education: Bachelor's Degree Difficulty w/ Childcare or Family Care: No Living arrangements: with family Gender identity (if verbalized by the patient): Male Spiritual care concerns: No Mod Sed Physical Exam Physical Exam Pre Procedural Exam: Normal: Appearance, Lungs, Heart Rate, Heart Rhythm, Neuro Exam, Abdomen, Extremities and Skin Hours since solid foods: 12 Hours since liquid intake: 8 Mallampati Classification: class II Internal Medicine - PN: Obj Da Vital Signs Vital Signs: Vital Signs - 24 hr 06/17/22 14:00 06/17/22 16:00 06/17/22 16:00 Temperature Pulse Rate 56 L 61 Respiratory Rate Blood Pressure Pulse Oximetry Oxygen Delivery Room Air 06/17/22 16:00 06/17/22 18:00 06/17/22 20:00 Temperature 36.4 C L 36.3 C L Pulse Rate 62 56 L 68 Respiratory Rate 16 16 Blood Pressure 118/67 134/70 Pulse Oximetry 97 99 Oxygen Delivery 06/17/22 20:00 06/17/22 22:00 06/18/22 00:00 Temperature 36.4 C L Pulse Rate 55 L
--- NOTE | 2022-06-18 14:00 | WPDCARDPROC ---
Cardiac Cath Procedure Note Date of procedure:: 06/18/22 Performing physician:: CATHETERIZATION LABORATORY REPORT Procedure Date: 06/18/2022 Coach Cleaner: Mahad Morales M.D., [facility]? Referring Physician: Dr. Zoie M.D. ? Anesthesia: Versed and Fentanyl were ordered and given in my presence at 11:56, procedure ended at 12:56. Supervision of nurse monitored moderate sedation with Versed and Fentanyl was provided for 60 minutes. Total of Versed 2.50mg and Fentanyl 75mcg were administered by the Imaging Science Professor RN Rosaline Matos. Pre-op Diagnosis: Coronary artery disease Post-op Diagnosis: 1. Significant obstructive branch vessel disease of the RPLV. The RPLV bifurcates into two branches. The upper branch of the RPLV is without obstructive disease. The lower branch of the RPLV has a significant focal 90-99% stenosis. This branch is small-medium caliber in size. Recommend medical management at this time. 2. Mild-moderate diffuse disease of the proximal-mid LAD. Procedure(s): Coronary angiography Access Site: Right radial artery Brief History and Clinical Indications: Patient is a 66-year-old male with hypertension and hyperlipidemia who is referred for cardiac cath for NSTEMI. Patient currently chest pain free and otherwise asymptomatic. All risks, benefits and alternatives to left heart catheterization with or without percutaneous coronary intervention was discussed at length with the patient. Risk of complications including but not limited to bleeding, infection, arrhythmia, stroke, worsening kidney function, blood loss, groin hematoma, limb loss, emergency coronary artery bypass grafting, and even were discussed with the patient and all questions were answered. The patient understood and wished to proceed. Time out called, patient name, date of , medical record number, allergies, procedure performed, identify Coach Cleaner, patient and staff member concurred with accurate data, procedure carried on. Findings: LEFT HEART CATHETERIZATION FINDINGS: 1. Left main: The left main coronary artery is widely patent without any significant obstructive disease. 2. Left anterior descending: The LAD is of medium caliber. The proximal LAD has diffuse mild disease. Mid LAD with moderate disease. The distal LAD is of small caliber and with luminal irregularities. 3. Ramus: There is a large caliber Ramus with mild disease in its mid portion. No obstructive disease in Ramus. 4. Left circumflex: The left circumflex artery has mild disease in its mid portion. OM branches are small in size and without obstructive disease. 5. Right coronary artery: The RCA is the dominant vessel. The RCA has diffuse mild disease. The distal RCA branches into the RPDA and RPLV. The RPDA is without obstructive disease. The RPLV bifurcates into two branches. The upper branch of the RPLV is without obstructive disease. The lower branch of the RPLV has a significant focal 90-99% stenosis. This branch is small-medium caliber in size. Description of Procedure: Informed consent signed and placed in the chart. Patient transferred to laboratory miller room. Prepped and draped in usual sterile fashion. 2% lidocaine injected subcutaneously in right wrist area. 22-gauge venipuncture catheter used to access the right radial artery with the Seldinger technique. 6-FR slender sheath placed in right radial artery. Nitroglycerine and Verapamil were given intraarterial through the sheath. Versacore wire advanced under fluoroscopy Difficult to engage the LM with a 5F Tig 4 or 5F FL4 via radial access due to aorta tortuosity and the uptake origin of the LM. Diagnostic angiograms of the left coronary system obtained with 5F CLS 3.5 guide catheter. 5F Tig 4 diagnostic catheter engaged Right Coronary Artery Multiple orthogonal angiogram obtained and reviewed Unable to cross the aortic valve from radial access with 5F Pigtail diagnostic catheter. Hemostasis was achieved by appl
--- NOTE | 2022-06-18 14:26 | PM.PNCARD ---
Progress Note: A&P Assessment and Plan (1) Unstable angina: Code(s): I20.0 - Unstable angina Status: Acute Assessment and Plan: Patient presented with exertional jaw and arm pain as well as progressive fatigue awaking from sleep with left arm pain prompting presentation found to have elevated troponins consistent with NSTEMI.? Symptoms currently resolved and is hemodynamically stable.? Troponin slightly down trending clinical picture highly concerning for severe obstructive CAD. Therefore, given therapeutic Lovenox, ASA, statin. Cardiac cath recommended. Cardiac cath today showed: 1. Significant obstructive branch vessel disease of the RPLV. The RPLV bifurcates into two branches. The upper branch of the RPLV is without obstructive disease. The lower branch of the RPLV has a significant focal 90-99% stenosis. This branch is small-medium caliber in size. Recommend medical management at this time. 2. Mild-moderate diffuse disease of the proximal-mid LAD. Coronary angiograms reviewed with both the patient and Dr. Lino (referring Character Impersonator) as well. Discussed the implications of branch vessel disease, along with extensive discussion of the risks vs benefits of intervention on branch vessel disease with both the patient, Dr. Lino, and the patient's family. My recommendation would be for medical management and can consider intervention if patient fails maximal medical therapy. Patient is agreeable and prefers medical management over intervention as well. Will continue ASA 81mg once daily. Will need indefinite ASA therapy. Plavix 75mg once daily. Continue high-intensity statin Continue amlodipine for antianginal therapy. Ideally, would like to add beta hattie, but his resting heart rate is already 50-60 so would like to avoid further beta hattie. Will add Imdur. Patient will need outpatient Cardiology follow-up. If echocardiogram is without significant abnormality, then okay for patient to be discharged home today. Patient will decide if he wants to see us in clinic as an outpatient or establish care with [facility] cardiology. I did give patient a CD of his cardiac cath images. (2) Hypertension: Code(s): I10 - Essential (primary) hypertension Status: Acute Assessment and Plan: Stable. Continue Amlodipine. (3) Hyperlipemia: Code(s): E78.5 - Hyperlipidemia, unspecified Status: Acute Assessment and Plan: High intensity statin. Time Spent With Patient Time: Plan of care discussed with the patient, his family at bedside, the Hospitalist (Dr. Quinteros). I spent 65 minutes in the care of this patient including discussions, chart review, medical decision making, and documentation. Subjective Date/time seen: 06/18/22 14:26 Interval history: Reason for consult: NSTEMI HPI: Patient is a pleasant 66-year-old male with a past medical history significant for hypertension and mild hyperlipidemia who had been in his usual state of health when he presented with progressive complaints of exertional right neck and jaw pain, occasional left arm pain with more strenuous activity such as playing with his grandchildren in the pool or after playing golf.? Patient admits he has been feeling more fatigued for the past several weeks as well.? He denies pa chest discomfort although he presented to the ER when he woke with left arm aching pain that would not resolve.? he is currently pain-free and at his baseline.? He did not feel exertional dyspnea was a prominent component of his symptoms although maybe at times was apparent.? He denies recent illnesses, fevers or chills.? No near-syncope or syncope, palpitations, falls.? He has no prior known history of CAD/myocardial infarction, CHF, stroke, DVT / PE.? He states he would note toward the end of his run golf he would get jaw pain which would then resolve with rest after proximally 10-15 minutes.? Denied associated diaphoresis or nausea.? He sta
[2022-06-18] MEDS: PERFLUTREN LIPID MICROSPHERES 1.5 ML VIAL DILUTED TO 10 ML TOTAL VOLUME IV PUSH (15:15)
--- NOTE | 2022-06-18 15:41 | IVDEFINITY ---
Prior to administration of IV Definity the patient was educated on the risks and benefits of the imaging enhancing agent including potential adverse side effects. The patient verbalized understanding. Allergies were verified. No exclusion criteria were identified and at least one of the following inclusion criteria were met: 1) physician request, 2) patient technically difficult to image (per the [place] [employer] guidelines of two or more segments not discernable within the apical view), or 3) questionable left ventricular function. ?
--- NOTE | 2022-06-18 15:45 | SUR.PHASEII ---
COPY OF [facility] PROCEDURE DISK GIVEN TO PT'S FOR DISCHARGE.
== END 2022-06-18 16:35 | disposition home or self-care (01) ==
LOC: ANHED 09:43 → ANHIMU 10:21
PROVIDERS: Emergency Medicine; Internal Medicine; Internal Medicine Cardiovascular Disease; Nurse Practitioner; Admitting Provider Chiropractor; Emergency Provider Emergency Medicine; PCP Family Medicine; Visit Provider Chiropractor
PROC: (CPT 93454; principal; 2022-06-18 11:00)
DX: I20.0 Unstable angina (principal); I11.9 Hypertensive heart disease without heart failure; E78.5 Hyperlipidemia, unspecified; R09.81 Nasal congestion; F41.9 Anxiety disorder, unspecified; Z20.822 Contact with and (suspected) exposure to COVID-19; F10.90 Alcohol use, unspecified, uncomplicated; I44.30 Unspecified atrioventricular block; R77.8 Other specified abnormalities of plasma proteins; R00.1 Bradycardia, unspecified; Z79.899 Other long term (current) drug therapy
CPT/HCPCS: 93458; 36415; 70450; 71046; 80053; 80061; 83690; 83735; 84443; 84484; 85025; 85610; 85730; 87637; 93005; 93454; 96372; 96374; 99285; A9270; C1769; C1887; C1894; C8929; G0378; J1644; J1650; J2250; J3010; J7040; Q9957

== ENCOUNTER 2022-06-23 20:09 | Emergency (ER) | payer MEDICARE, SELFPAY ==
[2022-06-23] VITALS (11 sets, daily range): BP systolic 107–140; BP diastolic 67–84; PULSE 50–67; RESP 11–20; TEMP 36.1; O2SAT 96–99
--- NOTE | ~2022-06-23 | XR_ITS ---
EXAMINATION: XR chest 2V DATE: 06/23/2022 21:00 INDICATION: Chest pain 6 days post cardiac catheterization. TECHNIQUE: PA and lateral views of the chest were obtained. COMPARISON: Chest radiograph dated 06/17/2022 FINDINGS: Calcified nodule at the left lung base near the costophrenic angle consistent with old granulomatous disease. No other airspace opacities, pulmonary edema, pleural effusion or pneumothorax. The cardiome diastinal silhouette is normal. Cholecystectomy clips in right upper quadrant. IMPRESSION: 1. No acute cardiopulmonary disease. Reviewed, dictated and finalized at location A.
--- NOTE | 2022-06-23 20:09 | ECG_ITS ---
Measurements Intervals Lucile Rate: 58 P: -17 TN: 246 QRS: 8 QRSD: 105 T: 80 QT: 391 QTc: 387 Interpretive Statements SINUS BRADYCARDIA WITH FIRST DEGREE AV BLOCK WITH OCCASIONAL SUPRAVENTRICULAR PREMATURE COMPLEXES NONSPECIFIC T-WAVE ABNORMALITY ABNORMAL ECG COMPARED TO ECG 06/17/2022 07:40:58 NO SIGNIFICANT CHANGE Electronically Signed On 06-24-2022 10:35:28 CDT by Fred Arreaga M.D.
[2022-06-23 20:34] LABS: Basophils Absolute Auto 0.1 K/mm3 (0.0-0.1); Basophils Percent Auto 0.9 % (0.2-1.2); Eosinophils Absolute Auto 0.3 K/mm3 (0-0.3); Eosinophils Percent Auto 3.2 % (0-4.4); Hematocrit 43.1 % (42.0-52.0); Immature Granulocyte Absolute 0.01 K/mm3 (0.00-0.031); Immature Granulocyte Percent A 0.1 % (0-0.5); Lymphocytes Absolute Auto 2.25 K/mm3 (0.9-3.2); Lymphocytes Percent Auto 26.4 % (18.3-44.2); Mean Corpuscular HGB Conc 34.8 g/dl (32-36); Mean Corpuscular Hemoglobin 32.8 pg (26-34); Mean Corpuscular Volume 94.1 fl (80-100); Mean Platelet Volume 10.4 fl (7.4-10.4); Monocytes Absolute Auto 0.6 K/mm3 (0.1-0.6); Monocytes Percent Auto 7.3 % (2.6-8.5); Neutrophils Absolute Auto 5.3 K/mm3 (1.3-6.7); Neutrophils Percent Auto 62.1 % (45.5-73.1); Platelet Count Result 278 k/mm3 (150-375); Red Blood Count 4.58 M/mm3 (4.6-6.20); Red Cell Distribution Width 13.2 % (11.5-14.5); White Blood Count 8.5 K/mm3 (4.5-10.0)
[2022-06-23 20:45] LABS: Alanine Aminotransferase 40 U/L (6-50); Albumin Level 4.4 g/dL (3.5-5.1); Alkaline Phosphatase 100 U/L (38-126); Anion Gap 7 mmol/L (8-16); Aspartate Amino Transferase 30 U/L (17-59); Bilirubin,Total 0.5 mg/dL (0.2-1.3); Blood Urea Nitrogen 17 mg/dL (9-20); Calcium 9.3 mg/dL (8.4-10.2); Carbon Dioxide 27 mmol/L (22-30); Chloride 105 mmol/L (98-107); Estimated CRCL calculation 55 ml/min; Estimated Glomerular Filt Rate 60; Glucose 113 mg/dL (65-110); Lipase 252 U/L (23-300); Potassium 3.9 mmol/L (3.4-5.0); Sodium 139 mmol/L (137-145)
[2022-06-23 20:46] LABS: INR 1.1; Partial Thromboplastin Time 31.3 SECONDS (22.3-36.8); Prothrombin Time 13.8 Seconds (11.1-14.7)
[2022-06-23 20:55] LABS: Troponin I < 0.012 ng/mL (0.000-0.034)
--- NOTE | 2022-06-23 21:36 | ED.GENADULT ---
HPI - General Adult General Chief complaint: Chest Pain Stated complaint: chest pain Time Seen by Provider: 06/23/22 21:14 History of Present Illness HPI narrative: This is a 66-year-old male presenting to the ED with multiple concerns since he had a catheterization 5 days ago. The patient had isosorbide added to his medication regimen. Since then they have been monitoring his blood pressure throughout the day and it has been in the 90s. He has felt fatigued throughout the morning but then feels better around dinner time. Patient also has been having some pain in the anterior portion of his right shoulder. It is worse with movement of his arm and described as achy. He was concerned that it might have been due to the cath. The patient also had a burning pain in his back that he attributed to indigestion that occurred 1 hour prior to arrival. It has resolved on its own since then. The patient is denying chest pain, shortness of breath, abdominal pain, numbness tingling or weakness to any extremity. Related Data Home Medications Medication Instructions Recorded Confirmed amlodipine 10 mg tablet 10 mg PO DAILY 02/11/19 06/17/22 melatonin 10 mg capsule 5 mg PO QHS 07/24/21 06/17/22 Allergies Allergy/AdvReac Type Severity Reaction Status Date / Time No Known Allergies Allergy Verified 06/23/22 20:12 [facility] Past Medical History Medical History Angina pectoris, unspecified Anxiety Hypertension Surgical History Surgical History History of cataract extraction Hx of cholecystectomy Hx of tonsillectomy Family History Family History Father Patient's father is , Onset Age: 72 Abdominal aneurysm Grandparent Family history of malignant neoplasm Mother Family history of renal failure, Onset Age: 82 Family history of kidney disease Sibling Diabetes mellitus Social History Social History Social History: The patient is and lives with his . He has 2 children. He is retired from selling insurance Smoking status: Never smoker Second hand tobacco smoke exposure: Yes Alcohol intake: current Drinks per week: 4 Substance use: never Lack of Transportation: No Lack of Food: Never True Current Housing: I Have Housing Concerned About Future Housing: No Difficulty Paying Gas/Electric Bills: No Difficulty Paying for Meds: No Currently Unemployed: No Education: Bachelor's Degree Difficulty w/ Childcare or Family Care: No Living arrangements: with family Gender identity (if verbalized by the patient): Male Spiritual care concerns: No Exam Narrative: APPEARANCE: No apparent distress. patient is pleasant polite during the interview. He is watching movies on his iPad. Head: atraumatic. EYES: EOMI, NOSE: Atraumatic NECK: Trachea midline RESPIRATORY: No increased rate of breathing , clear to auscultation CARDIOVASCULAR: RRR, no peripheral edema ABDOMINAL: Non-distended, soft no guarding or rebound MUSCULOSKELETAl: No obvious deformities focal exam of the right upper extremity revealed point tenderness over the anterior deltoid. Pulses are +2 with Radian ulnar distribution. radial ulnar and median motor nerve distributions are intact. NEURO: Alert. Moving 4/4 extremities SKIN:: Warm, dry. Normal color PSYCHIATRIC: Normal affect Course Vital Signs Vital signs: Vital Signs Temperature 97 F L 06/23/22 20:12 Pulse Rate 67 06/23/22 20:12 Respiratory Rate 16 06/23/22 20:12 Blood Pressure 140/84 06/23/22 20:12 Pulse Oximetry 99 06/23/22 20:12 Oxygen Delivery Room Air 06/23/22 20:12 Temperature 97 F L 06/23/22 20:12 Pulse Rate 56 L 06/23/22 23:46 Respiratory Rate 17 06/23/22 23:46 Blood Pressure 110/73
[2022-06-23] MEDS: ACETAMINOPHEN 500 MG TABLET 1000 MG PO (22:18)
[2022-06-24 00:18] LABS: Troponin I < 0.012 ng/mL (0.000-0.034)
== END 2022-06-24 00:28 | disposition home or self-care (01) ==
PROVIDERS: Emergency Provider Emergency Medicine; PCP Family Medicine
DX: M25.511 Pain in right shoulder (principal); I95.9 Hypotension, unspecified; R00.1 Bradycardia, unspecified; F41.9 Anxiety disorder, unspecified; I10 Essential (primary) hypertension
CPT/HCPCS: 36415; 71046; 80053; 83690; 84484; 85025; 85610; 85730; 93005; 99284; A9270

== ENCOUNTER 2022-09-05 07:15 | Outpatient (RCR) | payer MEDICARE, SELFPAY | END 2022-09-25 12:43 | disposition home or self-care (01) | LOC: ANHCPREHAB 07:15 | PROVIDERS: PCP Family Medicine; Visit Provider Internal Medicine Cardiovascular Disease | DX: I25.2 Old myocardial infarction (principal) | CPT/HCPCS: 93798 ==

== ENCOUNTER 2022-12-23 18:16 | Emergency (ER) | payer MEDICARE, SELFPAY ==
--- NOTE | 2022-12-23 18:21 | ED.EAR ---
HPI - Ear Problem General Chief complaint: Ear Stated complaint: CLOGGED EARS Time Seen by Provider: 12/23/22 18:22 Source: patient Mode of arrival: ambulatory Limitations: no limitations History of Present Illness HPI Narrative: Patient is a 59-year-old male who presents with bilateral clogged ears. Patient states he had ears cleaned out approximately 6 months ago with same symptoms. Patient states he got hearing aids a year ago and has had significant problems with earwax since then. Has not tried any [id number] earwax remover drops. Denies any pain. Complaint: ear pain Related Data Home Medications Medication Instructions Recorded Confirmed melatonin 10 mg capsule 5 mg PO QHS 07/24/21 12/23/22 metoprolol succinate 25 mg 25 mg PO DAILY 07/25/22 12/23/22 tablet,extended release 24 hr amlodipine 5 mg tablet 5 mg PO DAILY 12/23/22 12/23/22 Allergies Allergy/AdvReac Type Severity Reaction Status Date / Time No Known Allergies Allergy Verified 12/23/22 18:34 Review of Systems Review of Systems: All systems reviewed & are unremarkable except as noted in HPI and below Constitutional: Constitutional: Denies body ache(s), Denies chills, Denies fever(s), Denies headache(s) and Denies malaise Eyes: Eyes: Denies blurry vision, Denies eye discharge and Denies irritation ENT: Denies headache(s), Reports hearing loss, Denies nasal congestion, Denies nasal discharge and Denies sore throat Cardiovascular: Cardiovascular: Denies chest pain, Denies edema, Denies palpitations and Denies dyspnea on exertion Respiratory: Respiratory: Denies cough and Denies dyspnea on exertion Gastrointestinal: Gastrointestinal: Denies abdominal pain, Denies diarrhea, Denies nausea and Denies vomiting Musculoskeletal: Musculoskeletal: Denies back pain, Denies arthralgias and Denies muscle weakness Integumentary/Breasts: Skin/Breast: Denies pruritus and Denies rash Neurologic: Denies headache(s) Psychiatric: Psychiatric: Reports no additional psychiatric complaints Endocrine: Endocrine: Denies palpitations PMFSH Past Medical History Medical History Angina pectoris, unspecified Anxiety Hypertension Myocardial infarction Surgical History Surgical History History of cataract extraction Hx of cholecystectomy Hx of tonsillectomy Family History Family History Father Patient's father is , Onset Age: 72 Abdominal aneurysm Grandparent Family history of malignant neoplasm Mother Family history of renal failure, Onset Age: 82 Family history of kidney disease Sibling Diabetes mellitus Social History Social History Social History: The patient is and lives with his . He has 2 children. He is retired from selling insurance Smoking status: Never smoker Second hand tobacco smoke exposure: Yes Alcohol intake: current Drinks per week: 4 Substance use: never Lack of Transportation: No Lack of Food: Never True Current Housing: I Have Housing Concerned About Future Housing: No Difficulty Paying Gas/Electric Bills: No Difficulty Paying for Meds: No Currently Unemployed: No Education: Bachelor's Degree Difficulty w/ Childcare or Family Care: No Living arrangements: with family Gender identity (if verbalized by the patient): Male Spiritual care concerns: No Comments At time of signature, agree with nursing past medical, surgical, social and family history. There is no relevant family history pertinent to the presenting complaint? Exam Const: General: cooperative, healthy appearing, no acute distress and well nourished Nutritional Appearance: well nourished Orientation/consciousness: patient oriented x3 Limitations: no limitations HE
[2022-12-23 18:23] VITALS: BP 147/79; PULSE 59; RESP 18; TEMP 36.4; O2SAT 100
== END 2022-12-23 18:48 | disposition home or self-care (01) ==
PROVIDERS: Emergency Provider Nurse Practitioner Family; PCP Family Medicine
DX: H61.23 Impacted cerumen, bilateral (principal); I10 Essential (primary) hypertension; I25.2 Old myocardial infarction; Z79.899 Other long term (current) drug therapy
CPT/HCPCS: 69210; 99212; G0463

== ENCOUNTER → 2023-05-12 12:02 | Outpatient (CLI) | payer MEDICARE, SELFPAY ==
--- NOTE | ~2023-05-12 | XR_ITS ---
EXAMINATION: XR elbow RT min 3V DATE: 05/12/2023 12:27 INDICATION: Right elbow pain TECHNIQUE: Anteroposterior, two oblique and lateral views of the right elbow were obtained. COMPARISON: None. FINDINGS: Alignment is normal. No fracture or joint effusion. Mild osteoarthritis with mild nonuniform joint sp rachel narrowing and tiny marginal osteophytes at the ulnotrochlear articulation. Soft tissues are unrem arkable. IMPRESSION: 1. 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 Reviewed, dictated and finalized at location A. ROSCOPE OPERATOR
== END ==
PROVIDERS: PCP Nurse Practitioner; Visit Provider Nurse Practitioner
DX: M19.021 Primary osteoarthritis, right elbow (principal)
CPT/HCPCS: 73080

== ENCOUNTER 2024-11-18 11:01 | Outpatient (CLI) | payer MEDICARE, SELFPAY ==
--- NOTE | ~2024-11-18 | XR_ITS ---
XR thoracolumbar Indication: Low back pain, unspecified Comparison: None Findings: The vertebral heights are intact. No fracture or subluxation. The disc heights are intact. Soft tissues unremarkable Impression: No acute abnormality. Reviewed, dictated and finalized at location A. Impression: No acute abnormality.
== END 2024-11-18 11:02 | disposition home or self-care (01) ==
LOC: GOSHIMG 11:02
PROVIDERS: PCP Family Medicine; Visit Provider Family Medicine
DX: M54.50 Low back pain, unspecified (principal); M54.6 Pain in thoracic spine
CPT/HCPCS: 72080